=== PATIENT | female | born 1930 | race Caucasian/White ===

== ENCOUNTER 2018-04-13 08:17 | Outpatient (CLI) | payer MEDICARE, OTHER ==
[2018-04-13] MEDS ORDERED: ISOVUE-370 76%-LOCM 1 ML ONE (10:03)
--- NOTE | 2018-04-13 12:03 | CT ---
CT OF THE CHEST AND ABDOMEN AND PELVIS WITH IV CONTRAST: Date: 04/13/18 INDICATION: History of neoplasm of the myometrium. COMPARISON: None. FINDINGS: CHEST: No suspicious pulmonary nodule is evident. There is subsegmental atelectasis involving both lower lob es. No pathologically enlarged lymph node is evident. There are coronary artery thoracic aortic calcifications. ABDOMEN: No focal hepatic lesion is evident. There is a 4.8 cm cyst involving the superior pole of the left kidney. Right kidney is normal appeari ng. Spleen is normal appearing. Adrenal glands are unremarkable. No free fluid or enlarged lymph nodes are evident. There are layered gallstones within the gallbladder. PELVIS: There is a mild amount of retained stool within the colon. There is scattered colonic diverticula. Th ere is ill-defined hypodensity involving the lower uterine segment and region of the cervix, nonspeci fic. The visualized adnexa appear within normal limits. No pathologically enlarged lymph nodes are evident . OSSEOUS STRUCTURES: There is mild thoracolumbar scoliosis. There is scattered degenerative osteoarthritic change. No susp icious osteolytic or osteoblastic lesion is identified. There is diffuse osteopenia. IMPRESSION: 1. No evidence of regional or metastatic disease demonstrated within the chest, abdomen, or pelvis. 2. Ill-defined hypodensity seen within the lower uterine segment and region of the cervix, may corre spond to the patient's reported myometrial mass or possibly a cervical malignancy. Recommend correlat ion with patient's surgical history and clinical exam. 3. Cholelithiasis. 4. Left renal cyst. 5. Colonic diverticulosis. 6. Mild thoracolumbar scoliosis. POS: [facility]
== END 2018-04-13 08:18 | disposition home or self-care (01) ==
LOC: BICCT 08:17
PROVIDERS: ATTEND Obstetrics & Gynecology Gynecologic Oncology
DX: C54.2 Malignant neoplasm of myometrium (principal); K80.20 Calculus of gallbladder without cholecystitis without obstruction; N28.1 Cyst of kidney, acquired; K57.30 Diverticulosis of large intestine without perforation or abscess without bleeding; M41.9 Scoliosis, unspecified; N88.8 Other specified noninflammatory disorders of cervix uteri
CPT/HCPCS: 71260; 74177; 82565

== ENCOUNTER 2019-04-01 13:33 | Emergency (ER) | payer MEDICARE, OTHER ==
--- NOTE | 2019-04-01 14:28 | ULT ---
US Venous Doppler Rt Unilat History: Bruising and swelling. Comparison: None. Findings: Real-time grayscale, color, and spectral analysis of the right lower extremity venous syste m was performed. The common femoral, femoral, proximal portions greater saphenous and deep femoral veins as well as the popliteal posterior tibial veins were interrogated. Normal flow, augmentation, and compression. Impression: No deep venous thrombosis.
== END 2019-04-01 15:32 ==
LOC: ERS 13:33
DX: S80.11XA Contusion of right lower leg, initial encounter (principal); G30.9 Alzheimer's disease, unspecified; X58.XXXA Exposure to other specified factors, initial encounter

== ENCOUNTER 2019-04-04 14:51 | Outpatient (CLI) | payer MEDICARE, OTHER ==
--- NOTE | 2019-04-04 15:40 | ULT ---
BILATERAL LOWER EXTREMITY VENOUS DOPPLER ULTRASOUND: HISTORY: Bilateral lower extremity edema. TECHNIQUE: Jeffers scale ultrasound with color flow and spectral Doppler imaging of the deep venous systems of the lower extremities performed bilaterally. FINDINGS: There is good flow, compression, and augmentation noted in the common femoral, femoral, deep femoral, popliteal, posterior tibial, and greater saphenous veins. There is a complex fluid collection in the soft tissues of the right lateral knee region measuring 9. 3 x 5.2 cm without internal flow. This likely represents a hematoma. IMPRESSION: No evidence of deep vein thrombosis in either lower extremity. POS: [facility]
== END 2019-04-04 14:52 | disposition home or self-care (01) ==
LOC: BICULT 14:51
PROVIDERS: ATTEND Nurse Practitioner Family
DX: R60.0 Localized edema (principal)
CPT/HCPCS: 93970

== ENCOUNTER 2020-03-03 19:10 | Emergency (ER) | payer MEDICARE, OTHER ==
--- NOTE | 2020-03-03 19:46 | RAD ---
AP pelvis one view HISTORY: Fall. FINDINGS: Sacral alae and pelvic rings are intact. Mild degenerative changes of the hips, sacroiliac joints, and pubic symphysis. No acute fracture or dislocation are apparent. IMPRESSION : No acute osseous abnormalities are demonstrated.
--- NOTE | 2020-03-03 20:11 | CT ---
CT head noncontrast HISTORY: Injury. COMPARISON: 12/02/2016. FINDINGS: There is no evidence of acute intracranial hemorrhage or infarct. Diffuse cortical atrophy and chronic ischemic small vessel disease are similar in appearance to the prior exam. There is no mass effect or shift of midline structures. Dense small osteoma projecting from the right temporal inner calvarium is stable. IMPRESSION : No acute abnormalities are demonstrated.
--- NOTE | 2020-03-03 20:17 | CT ---
CT cervical spine noncontrast HISTORY: Injury. FINDINGS: There is gentle reversal of the normal lordotic curvature. Vertebral body heights are maint ained. Disc space narrowing at each level. Minimal degenerative spondylolisthesis at the C4-5 level. No acute fracture or dislocation. Bulky osteophytosis throughout the vertebral bodies and facets. IMPRESSION : Prominent osseous degenerative changes. No acute osseous abnormalities are demonstrated.
[2020-03-03] MEDS ORDERED: Lidocaine 1% w/Epinephrine 1:100K 20 ML VIAL ONE (20:24)
[2020-03-03] MEDS ORDERED: Bacitracin 1 PK ONE (20:58)
== END 2020-03-03 21:20 | disposition home or self-care (01) ==
LOC: ERS 19:10
DX: S01.81XA Laceration without foreign body of other part of head, initial encounter (principal); G30.9 Alzheimer's disease, unspecified; F02.80 Dementia in other diseases classified elsewhere, unspecified severity, without behavioral disturbance, psychotic disturbance, mood disturbance, and anxiety; Z79.84 Long term (current) use of oral hypoglycemic drugs; Z79.899 Other long term (current) drug therapy; Z79.82 Long term (current) use of aspirin; W22.8XXA Striking against or struck by other objects, initial encounter
CPT/HCPCS: 12013; 70450; 72125; 72170

== ENCOUNTER 2020-03-21 02:53 | Inpatient (IN) | payer MEDICARE, OTHER ==
[2020-03-21] MEDS ORDERED: Furosemide 40 MG/4 ML VIAL ONE ×2 (03:00→03:02)
[2020-03-21] MEDS ORDERED: Diltiazem 125 MG/25 ML ONE (03:15)
[2020-03-21 03:21] LABS: Hemoglobin 13.6 g/dL (12.0-16.0); Mean Corpuscular Volume 99.9 fL (78.0-98.0); Mean Platelet Volume 7.7 fL (7.4-10.4); Platelet Count 283 thou/uL (130-400); RBC Distribution Width 13.4 % (11.5-14.5); Red Blood Cell (RBC) Count 4.12 mill/uL (4.20-5.40); White Blood Cell (WBC) Count 19.4 thou/uL (4.8-10.8)
[2020-03-21 03:39] LABS: Band 5 % (5-11); Lymphocytes 1 % (21-51); MDiff Complete? YES; Monocytes 12 % (0-10); Neutrophil 82 % (42-75); Platelet Morphology Comment Appears Adequate; RBC Morphology Normal
[2020-03-21 03:45] LABS: ALT (SGPT) 27 U/L (8-55); AST (SGOT) 28 U/L (5-34); Albumin 3.1 g/dL (3.4-4.8); Alkaline Phosphatase 94 U/L (40-110); Anion Gap 19 mmol/L (10-20); BUN (Urea Nitrogen) 50 mg/dL (9.8-20.1); Bilirubin, Total 2.6 mg/dL (0.2-1.2); Calc. Creatinine Clearance 0 mL/min (70-130); Calcium 8.8 mg/dL (7.8-10.44); Carbon Dioxide 23 mmol/L (23-31); Chloride 99 mmol/L (98-107); Globulin 3.1 g/dL (2.4-3.5); Glucose 114 mg/dL (83-110); Protein, Total 6.2 g/dL (6.0-8.3); Sodium 137 mmol/L (136-145)
[2020-03-21] MEDS ORDERED: Amiodarone 450 MG, Admixture Fee 1 EACH in Dextrose 5% in Water 250 ML IVPB SCH (03:45)
[2020-03-21] MEDS ORDERED: Cefepime 2 GM VIAL ONE (03:57)
[2020-03-21] MEDS ORDERED: Vancomycin 1 GM/200 ML BAG ONE (03:58)
[2020-03-21] MEDS ORDERED: Acetaminophen 325 MG TAB PO PRN (04:55)
[2020-03-21] MEDS ORDERED: Ondansetron ODT 4 MG TAB PO PRN (04:55)
[2020-03-21] MEDS ORDERED: Ondansetron PF 4 MG/2 ML Vial IVP PRN (04:55)
[2020-03-21] MEDS ORDERED: Acetaminophen 650 MG Suppository PR PRN (04:55)
[2020-03-21] MEDS ORDERED: Guaifenesin DM 100-10/5 ML UDCUP PO PRN (04:55)
[2020-03-21] MEDS ORDERED: Calcium Carbonate 500 MG ChewTAB PO PRN (04:55)
--- NOTE | 2020-03-21 05:07 | PDOC.HHP ---
Hospitalist HPI - History of Present Illness respiratory distress History of Present Illness: Case of an 89y/o female with a pmhx of alzheimer dementia, htn, hld and DM who was brought to hospital due to respiratory distress. apparently patient was on her usual state of health until today when she was brought to hospital due to respiratory distress. patient has an unclear history of covid 19, apparently she was recently diagnsed on 03/03/2020 and had a negative test afterwards but this was unable to be confirmed. at ED patient was evaluated and found to be on resp failure requiring bipap new onset of afib on rvr and findings concerning for sepsis secondary to pneumonia for which hospitalist was consulted for further evaluation and management. Hospitalist ROS - Review of Systems ROS unobtainable: due to mental status Hospitalist History - Past Surgical History Other Surgical History: unable to asses due to mental status - Family History Other Family History: unable to asses due to mental status - Social History Other Social History: unable to asses due to mental status - Exam General Appearance: ill appearing Eye: PERRL, anicteric sclera ENT: normocephalic atraumatic, no oropharyngeal lesions Neck: supple, symmetric, no JVD Heart: irregular Heart - other findings: tachycardic Respiratory: rhonchi, tachypneic Gastrointestinal: soft, non-tender, non-distended Extremities: no cyanosis, no clubbing, no edema Skin: normal turgor, no lesions Neurological: cranial nerve grossly intact Musculoskeletal: normal tone Psychiatric: normal affect, normal behavior Hospitalist Results - Labs Result Diagrams: 03/21/20 03:03 03/21/20 03:03 Lab results: WBC 19.4 thou/uL (4.8-10.8) H 03/21/20 03:03 Hgb 13.6 g/dL (12.0-16.0) 03/21/20 03:03 Hct 41.2 % (36.0-47.0) 03/21/20 03:03 MCV 99.9 fL (78.0-98.0) H 03/21/20 03:03 Plt Count 283 thou/uL (130-400) 03/21/20 03:03 Band Neuts % (Manual) 5 % (5-11) 03/21/20 03:03 Sodium 137 mmol/L (136-145) 03/21/20 03:03 Potassium 4.0 mmol/L (3.5-5.1) 03/21/20 03:03 Chloride 99 mmol/L (98-107) 03/21/20 03:03 Carbon Dioxide 23 mmol/L (23-31) 03/21/20 03:03 BUN 50 mg/dL (9.8-20.1) H 03/21/20 03:03 Creatinine 1.18 mg/dL (0.6-1.1) H 03/21/20 03:03 Glucose 114 mg/dL (83-110) H 03/21/20 03:03 Lactic Acid 2.5 mmol/L (0.5-2.2) H 03/21/20 03:03 Calcium 8.8 mg/dL (7.8-10.44) 03/21/20 03:03 Total Bilirubin 2.6 mg/dL (0.2-1.2) H 03/21/20 03:03 AST 28 U/L (5-34) 03/21/20 03:03 ALT 27 U/L (8-55) 03/21/20 03:03 Alkaline Phosphatase 94 U/L (40-110) 03/21/20 03:03 Troponin I 0.016 ng/mL (< 0.028) 03/21/20 03:03 B-Natriuretic Peptide 245.7 pg/mL (0-100) H 03/21/20 03:03 Serum Total Protein 6.2 g/dL (6.0-8.3) 03/21/20 03:03 Albumin 3.1 g/dL (3.4-4.8) L 03/21/20 03:03 Hospitalist H&P A/P - Problem (1) Respiratory failure with hypoxia Code(s): J96.91 - RESPIRATORY FAILURE, UNSPECIFIED WITH HYPOXIA Status: Acute (2) Sepsis Code(s): A41.9 - SEPSIS, UNSPECIFIED ORGANISM Status: Acute (3) Pneumonia Code(s): J18.9 - PNEUMONIA, UNSPECIFIED ORGANISM Status: Acute (4) COVID-19 Code(s): U07.1 - COVID-19 Status: Acute (5) Atrial fibrillation with RVR Code(s): I48.91 - UNSPECIFIED ATRIAL FIBRILLATION Status: Acute - Plan Plan: 89 with the stated pmhx who present w resp failure sepsis secondary to pneumonia / covid and afib in rvr resp failure - likely secondary to infectious process - on bipap - pulmonology consulted - dnr sepsis secondary to pneumonia - elevatated WBC + elevated LA with CXR concerning for RLL consolidation, seen by me, pending official report - will start cef + vanc - ivfs - f/u LA - f/u cultures covid 19 - unclear hx, apparently recently positive f/u negative, could not confirm w long-term - will start isolation precautions - decadron ivd - f/u inflammation markers afib in rvr - started on full AC w lovenox - 2echo - on amiodarone drip - cardio evaluation
[2020-03-21] MEDS: Sodium Chloride 0.9% 1,000 ML IV SCH ×2 (06:32→21:05)
[2020-03-21] MEDS ORDERED: FLU VACC QS2020-21(65YR UP)/PF 240 MCG/0.7 ML SYRINGE IM ONE (07:00)
--- NOTE | 2020-03-21 08:02 | RAD ---
Frontal radiograph chest: 03/21/2020 COMPARISON: None available HISTORY: Respiratory distress FINDINGS: Postoperative clips are seen overlying the lateral aspect of the left chest wall. There is a nonspecific focal area of parenchymal opacity in the lateral aspect of the right lung base approaching the right costophrenic angle measuring 4.2 cm in craniocaudal dimension. There is no pneu mothorax or large volume pleural effusion. IMPRESSION: Nonspecific focal opacity in the lateral right lung base. This may be related to infectio us pneumonitis/aspiration or an underlying pulmonary parenchymal mass lesion. Recommend short-term follow-up imaging following treatment to document resolution. If this opacity persists, follow-up [facility] [address] [place] is advised. DENISE T
[2020-03-21 08:32] LABS: Lactic Acid 2.1 mmol/L (0.5-2.2)
[2020-03-21 08:37] LABS: Troponin I 0.025 ng/mL (< 0.028)
[2020-03-21] MEDS ORDERED: Cefepime 2 GM in Sodium Chloride 0.9% 100 ML IVPB SCH (10:00)
[2020-03-21] MEDS: Dexamethasone 4 mg/ml Vial SLOW IVP SCH (10:44)
[2020-03-21] MEDS: Enoxaparin Sodium 80 MG/0.8 ML SYRINGE SC SCH ×2 (10:44→21:04)
--- NOTE | 2020-03-21 15:11 | PDOC.HOSPP ---
- Subjective Encounter Date: 03/21/20 Encounter Time: 07:00 Subjective: Patient seen for follow-up regarding acute hypoxic respiratory failure. Patient is currently on BiPAP, not speaking, could not complete review of systems. - Objective Vital Signs & Weight: Vital Signs (12 hours) Temp Pulse Pulse Ox 03/21/20 09:47 100 03/21/20 09:46 115 H 03/21/20 08:00 97.0 F L 96 03/21/20 06:20 96.5 F L Weight Weight 166 lb Most Recent Monitor Data Heart Rate from ECG 121 NIBP 96/57 NIBP BP-Mean 70 Respiration from ECG 25 SpO2 93 Result Diagrams: 03/21/20 03:03 03/21/20 03:03 Additional Labs: Accuchecks 03/21/20 06:37 POC Glucose 154 H I reviewed patient's labs and MAR EKG Reviewed by me: Yes (Atrial fibrillation on telemetry) Hospitalist ROS - Review of Systems ROS unobtainable: due to mental status - Medication Medications: Active Medications Generic Name Dose Route Start Last Admin Trade Name Adrian PRN Reason Stop Dose Admin Dexamethasone 6 mg 03/21/20 09:00 03/21/20 10:44 Dexamethasone 4 Mg/Ml Vial SLOW IVP 6 mg DAILY RAGHU Administration Enoxaparin Sodium 80 mg 03/21/20 09:00 03/21/20 10:44 Enoxaparin Sodium 80 Mg/0.8 Ml Syringe SC 80 mg 0900,2100 RAGHU Administration Sodium Chloride 1,000 mls @ 70 mls/hr 03/21/20 05:00 03/21/20 06:32 Normal Saline 0.9% IV 1,000 mls .[id number] RAGHU Administration - Exam General Appearance: ill appearing Eye: anicteric sclera ENT: normocephalic atraumatic Neck: supple Heart: no rubs, irregular Respiratory: rhonchi Gastrointestinal: soft, non-tender Skin: no rashes Psychiatric - other findings: Unable to assess Hosp A/P - Plan - Problem (1) Respiratory failure with hypoxia Code(s): J96.91 - RESPIRATORY FAILURE, UNSPECIFIED WITH HYPOXIA Status: Acute (2) Atrial fibrillation with RVR Code(s): I48.91 - UNSPECIFIED ATRIAL FIBRILLATION Status: Acute (3) COVID-19 Code(s): U07.1 - COVID-19 Status: Acute (4) Sepsis Code(s): A41.9 - SEPSIS, UNSPECIFIED ORGANISM Status: Acute (5) Pneumonia Code(s): J18.9 - PNEUMONIA, UNSPECIFIED ORGANISM Status: Acute - Plan Plan: Continue IV ceftriaxone and azithromycin. Continue dexamethasone. Patient reportedly tested positive for COVID-19 on February 28, 2020. She is not a candidate for remdesivir. Continue amiodarone drip. Patient is currently in atrial fibrillation, rate controlled. Continue anticoagulation. PCCM/cardiology service was consulted.
[2020-03-21] MEDS: Amiodarone 450 MG in Dextrose 5% in Water 250 ML IVPB SCH (15:55)
[2020-03-21] MEDS: Cefepime 2 GM in Sodium Chloride 0.9% 100 ML IVPB SCH (15:55)
[2020-03-21 16:09] LABS: Troponin I 0.016 ng/mL (< 0.028)
[2020-03-21] MEDS: Digoxin 0.5 MG/2 ML AMP SLOW IVP SCH ×3 (18:49→23:48)
--- NOTE | 2020-03-21 20:20 | CON ---
DATE OF CONSULTATION: 03/21/2020 INDICATION FOR CONSULTATION: 89-year-old female with atrial fibrillation, and rapid ventricular response. HISTORY OF PRESENT ILLNESS: This very unfortunate 89-year-old female, who has Alzheimer's dementia, resides in a assisted. She has become increasingly short of breath and was admitted due to respiratory distress. She has risk factors for coronary artery disease, which include hypertension, dyslipidemia, and diabetes. She apparently became so distressed, she is now on a BiPAP mask in order to maintain oxygen levels. She is very demented and is very difficult to get any information from the patient. She was noted to be in atrial fibrillation with rapid ventricular response. She was placed on IV diltiazem apparently in the emergency room and did have hypotension. At this time, she is on IV amiodarone when I am seeing her in the IMCU, very little information can be obtained from the patient. She is nonverbal at least to me. I did notice also that her BNP was 247, which is not indicative of significant congestive heart failure. Her troponin-I is negative. Her chest x- ray did show what appears to be a right lung base infiltrate more on the lateral side. Her EKG shows atrial fibrillation with rapid ventricular response. She recently was diagnosed with COVID couple weeks ago, is unclear whether or not she infected. Review of systems as well as past medical history, family history, social history, unable to gather this information as the patient is nonverbal and she is on a BiPAP mask. MEDICATIONS: At this time include; 1. IV amiodarone. 2. Maxipime. 3. She is also on vancomycin. 4. Dexamethasone. 5. Lovenox. 6. Tylenol. 7. Other p.r.n. medications. PHYSICAL EXAMINATION: GENERAL: Reveals an elderly female who is in no acute distress at this time. She is somewhat if not just lethargic. She is incoherent, does not communicate. VITAL SIGNS: Her blood pressure is 116/82, heart rate is in the 1 teens to 120s with atrial fibrillation, respiratory rate is about 25, O2 saturation is 97%. HEENT: Unremarkable, cannot auscultate the carotids due to high flow from the CPAP mask. CHEST: Appears to be clear. She does not take a good inspiratory effort or deep breath for auscultation. I do not hear any rales or wheezing. CARDIOVASCULAR: Reveals an irregularly irregular rhythm. Tachycardic. There were no gross murmurs noted. ABDOMEN: Soft and nontender. I cannot elicit any pain nor can I palpate any masses. EXTREMITIES: Did show mild lower extremity edema or ankle edema mainly. I cannot palpate pedal pulses. Popliteal pulses were present. NEUROLOGIC: She is nonverbal. LABORATORY DATA: Shows a WBC of 19.4, hemoglobin 13.6, platelet count 283,000. Sodium was 137, potassium 4.0, BUN was 50 with a creatinine of 1.18, blood sugar anywhere between 114 to 154. Troponin-I is negative. BNP was 247. EKG shows atrial fibrillation with rapid ventricular response. IMPRESSION: 1. Elderly female with recent diagnosis of coronavirus disease pneumonia who is having respiratory distress. She is maintaining on BiPAP mask at this time. We will continue this medication. She is on antibiotics and steroids also to help her with this acute event. Also, she has atrial fibrillation with rapid ventricular response. I know that she is somewhat dehydrated, we need to give her some volume. We are still waiting on echocardiogram to determine whether or not she has a normal ejection fraction. Her BNP was 247, not indicative of congestive heart failure, probably minimal. She might have some diastolic dysfunction, which would also cause elevation of the BNP. 2. Atrial fibrillation. I will start her on IV digoxin, at least give a loading dose to see if this will control the heart rate somewhat, but most likely once the underlying illness has improved, then the heart rate most likely will improve, also will decrease. She is on IV amiodarone, we could switch this over to p.o. in the next 24 hours, but based on the results of the echocardiogram to determine whether or not she may be a candidate for a cardioversion of her atrial fibrillation. I do not know whether this is chronic or not, but this time we will continue the IV amiodarone, but also continue with some type of anticoagulation, and most likely she is on Lovenox. We will continue Lovenox at this time unless she has any bleeding issues. 3. History of Alzheimer's. This will be dealt by the primary service. 4. Most likely underlying sepsis and once this improves, hopefully her cardiac status will also improve. We will be more than happy to continue to follow the patient with you. We will order digoxin for the patient to see if we can control the heart rate somewhat better. If not, we may also start p.o. beta-blockers since her blood pressure seems to be more stable now. Job ID: [id number] MTDD
[2020-03-22 02:07] LABS: SARS-CoV-2 MS2 Positive; SARS-CoV-2 N Gene Positive; SARS-CoV-2 S Gene Positive; SARS-CoV-2 by NAA DETECTED (NotDetected); SARS-CoV-2 orf1ab Positive
[2020-03-22] MEDS: Cefepime 2 GM in Sodium Chloride 0.9% 100 ML IVPB SCH ×2 (03:25→17:36)
[2020-03-22] MEDS: Amiodarone 450 MG in Dextrose 5% in Water 250 ML IVPB SCH ×2 (03:53→20:37)
[2020-03-22] MEDS: Vancomycin 1 GM in Premix Bag 1 BAG IVPB SCH (04:13)
[2020-03-22] MEDS: Digoxin 0.5 MG/2 ML AMP SLOW IVP SCH (05:26)
[2020-03-22] MEDS ORDERED: Metoprolol Tartrate 5 MG/5 ML VIAL IVP SCH (06:30)
[2020-03-22 09:18] LABS: ALT (SGPT) 16 U/L (8-55); AST (SGOT) 14 U/L (5-34); Albumin 2.2 g/dL (3.4-4.8); Alkaline Phosphatase 75 U/L (40-110); Anion Gap 12 mmol/L (10-20); BUN (Urea Nitrogen) 38 mg/dL (9.8-20.1); Bilirubin, Total 1.7 mg/dL (0.2-1.2); Calc. Creatinine Clearance 76 mL/min (70-130); Calcium 6.9 mg/dL (7.8-10.44); Carbon Dioxide 19 mmol/L (23-31); Chloride 112 mmol/L (98-107); Globulin 2.4 g/dL (2.4-3.5); Glucose 86 mg/dL (83-110); Potassium 3.2 mmol/L (3.5-5.1); Protein, Total 4.6 g/dL (6.0-8.3); Sodium 140 mmol/L (136-145)
[2020-03-22 09:24] LABS: Band 12 % (5-11); Hemoglobin 12.5 g/dL (12.0-16.0); Lymphocytes 3 % (21-51); MDiff Complete? YES; Mean Corpuscular HGB CONC 32.5 g/dL (32.0-36.0); Mean Corpuscular Hemoglobin 32.9 pg (27.0-31.0); Mean Platelet Volume 7.6 fL (7.4-10.4); Monocytes 1 % (0-10); Neutrophil 84 % (42-75); Platelet Count 271 thou/uL (130-400); RBC Distribution Width 13.2 % (11.5-14.5); Red Blood Cell (RBC) Count 3.79 mill/uL (4.20-5.40); White Blood Cell (WBC) Count 16.8 thou/uL (4.8-10.8)
[2020-03-22] MEDS: Dexamethasone 4 mg/ml Vial SLOW IVP SCH (10:44)
[2020-03-22] MEDS: Digoxin 0.125 MG TAB PO SCH (10:45)
[2020-03-22] MEDS: Enoxaparin Sodium 80 MG/0.8 ML SYRINGE SC SCH ×2 (10:51→20:37)
[2020-03-22] MEDS: Diltiazem HCl SR 60 mg Capsule PO SCH ×2 (10:51→20:35)
[2020-03-22] MEDS: Sodium Chloride 0.9% 1,000 ML IV SCH (10:53)
--- NOTE | 2020-03-22 16:33 | PDOC.HOSPP ---
- Subjective Encounter Date: 03/22/20 Encounter Time: 15:30 Subjective: Patient seen for follow-up regarding acute hypoxic respiratory failure. He is not answering questions, could not complete review of systems. - Objective Vital Signs & Weight: Vital Signs (12 hours) Pulse Pulse Ox 03/22/20 10:45 125 H 03/22/20 08:00 96 03/22/20 05:26 125 H Weight Admit Weight 166 lb Weight 166 lb Most Recent Monitor Data Heart Rate from ECG 80 NIBP 125/78 NIBP BP-Mean 93 Respiration from ECG 28 SpO2 95 I&O: 03/21/20 03/22/20 03/23/20 06:59 06:59 06:59 Intake Total 2148 Output Total 300 Balance 1848 Result Diagrams: 03/22/20 08:41 03/22/20 08:41 Additional Labs: I reviewed patient's labs and MAR EKG Reviewed by me: Yes (Cristofer junior with RVR on personnel monitor) Hospitalist ROS - Review of Systems ROS unobtainable: due to mental status - Medication Medications: Active Medications Generic Name Dose Route Start Last Admin Trade Name Freq PRN Reason Stop Dose Admin Dexamethasone 6 mg 03/21/20 09:00 03/22/20 10:44 Dexamethasone 4 Mg/Ml Vial SLOW IVP 6 mg DAILY RAGHU Administration Digoxin 0.125 mg 03/22/20 09:00 03/22/20 10:45 Digoxin 0.125 Mg Tab PO 0.125 mg QAM RAGHU Administration Diltiazem HCl 60 mg 03/22/20 09:00 03/22/20 10:51 Diltiazem Hcl Sr 60 Mg Capsule PO 60 mg BID RAGHU Administration Enoxaparin Sodium 80 mg 03/21/20 09:00 03/22/20 10:51 Enoxaparin Sodium 80 Mg/0.8 Ml Syringe SC 80 mg 0900,2100 RAGHU Administration Sodium Chloride 1,000 mls @ 70 mls/hr 03/21/20 05:00 03/22/20 10:53 Normal Saline 0.9% IV 1,000 mls .[id number] RAGHU Administration Amiodarone HCl 450 mg/ 259 mls @ 0 mls/hr 03/21/20 05:15 03/22/20 03:53 Dextrose/Water IVPB 259 mls INF RAGHU Administration Protocol Per Protocol Vancomycin HCl 1 gm/ Device 200 mls @ 200 mls/hr 03/22/20 04:00 03/22/20 04:13 IVPB 200 mls 0400 RAGHU Administration Sodium Chloride 10 ml 03/22/20 09:00 03/22/20 10:52 Flush - Normal Saline 10 Ml Syringe IVF 10 ml Q12HR RAGHU Administration - Exam Eye: anicteric sclera ENT: normocephalic atraumatic Neck: supple Heart: no rubs, irregular Respiratory - other findings: Bibasal crackles Gastrointestinal: soft, non-tender Skin: no rashes Psychiatric: lethargic Hosp A/P - Plan - Problem (1) Respiratory failure with hypoxia Code(s): J96.91 - RESPIRATORY FAILURE, UNSPECIFIED WITH HYPOXIA Status: Acute (2) Atrial fibrillation with RVR Code(s): I48.91 - UNSPECIFIED ATRIAL FIBRILLATION Status: Acute (3) COVID-19 Code(s): U07.1 - COVID-19 Status: Acute (4) Sepsis Code(s): A41.9 - SEPSIS, UNSPECIFIED ORGANISM Status: Acute (5) Pneumonia Code(s): J18.9 - PNEUMONIA, UNSPECIFIED ORGANISM Status: Acute - Plan Continue IV antibiotics-ceftriaxone and azithromycin. Continue IV dexamethasone. Patient is not a candidate for remdesivir. Patient is currently in atrial fibrillation, rate controlled. Continue anticoagulation. PCCM/cardiology services following.
[2020-03-23] MEDS: Sodium Chloride 0.9% 1,000 ML IV SCH ×2 (04:56→16:22)
[2020-03-23] MEDS: Vancomycin 1 GM in Premix Bag 1 BAG IVPB SCH (04:57)
[2020-03-23 05:01] LABS: Vancomycin, Trough 6.6 ug/mL
[2020-03-23] MEDS: Dexamethasone 4 mg/ml Vial SLOW IVP SCH (09:54)
[2020-03-23] MEDS: Digoxin 0.125 MG TAB PO SCH (09:55)
[2020-03-23] MEDS: Diltiazem HCl SR 60 mg Capsule PO SCH ×2 (09:55→21:37)
[2020-03-23] MEDS: Enoxaparin Sodium 80 MG/0.8 ML SYRINGE SC SCH ×2 (09:56→21:35)
--- NOTE | 2020-03-23 11:02 | PRG ---
DATE OF SERVICE: 03/23/2020 SUBJECTIVE: Ms. Polanco looks comfortable. OBJECTIVE: VITAL SIGNS: Her blood pressure is 140/80, pulse is currently in the 80s to regular. The patient is on intravenous amiodarone, Cardizem, and digoxin. At this time, we will stop the digoxin and monitor closely the heart rhythm. Job ID: [id number]
--- NOTE | 2020-03-23 11:50 | EKG ---
Test Reason : Blood Pressure : / mmHG Vent. Rate : 168 BPM Atrial Rate : 192 BPM P-R Int : 000 ms QRS Dur : 078 ms QT Int : 282 ms P-R-T Axes : 000 -01 157 degrees QTc Int : 471 ms Atrial fibrillation with rapid ventricular response Nonspecific ST and T wave abnormality , probably digitalis effect Abnormal ECG Confirmed by GISELLA FRANK M.D. ([id number]), technical writer and editor GUSTAVO PRINGLE ([id number]) on 03/23/2020 11:50:31 AM Referred By: MONIKA Confirmed By:GIESLLA FRANK M.D.
[2020-03-23] MEDS: Amiodarone 450 MG in Dextrose 5% in Water 250 ML IVPB SCH (12:39)
--- NOTE | 2020-03-23 16:18 | PDOC.HOSPP ---
- Subjective Encounter Date: 03/23/20 Encounter Time: 10:00 Subjective: Patient seen for follow-up of hypoxic respiratory failure. Patient is nonverbal, could not complete review of systems. - Objective Vital Signs & Weight: Vital Signs (12 hours) Pulse Pulse Ox 03/23/20 09:55 125 H 03/23/20 07:50 95 Weight Admit Weight 166 lb Weight 166 lb 6 oz Most Recent Monitor Data Heart Rate from ECG 84 NIBP 149/71 NIBP BP-Mean 97 Respiration from ECG 25 SpO2 95 I&O: 03/22/20 03/23/20 03/24/20 06:59 06:59 06:59 Intake Total 2148 2151 Output Total 300 800 Balance 1848 1351 Result Diagrams: 03/22/20 08:41 03/22/20 08:41 Additional Labs: Labs and MAR reviewed by me EKG Reviewed by me: Yes (Cristofer junior on telemetry) Hospitalist ROS - Review of Systems ROS unobtainable: due to mental status - Medication Medications: Active Medications Generic Name Dose Route Start Last Admin Trade Name Shirazq PRN Reason Stop Dose Admin Dexamethasone 6 mg 03/21/20 09:00 03/23/20 09:54 Dexamethasone 4 Mg/Ml Vial SLOW IVP 6 mg DAILY RAGHU Administration Diltiazem HCl 60 mg 03/22/20 09:00 03/23/20 09:55 Diltiazem Hcl Sr 60 Mg Capsule PO Not Given BID RAGHU Enoxaparin Sodium 80 mg 03/21/20 09:00 03/23/20 09:56 Enoxaparin Sodium 80 Mg/0.8 Ml Syringe SC 80 mg 0900,2100 RAGHU Administration Sodium Chloride 1,000 mls @ 70 mls/hr 03/21/20 05:00 03/23/20 04:56 Normal Saline 0.9% IV 1,000 mls .[id number] RAGHU Administration Amiodarone HCl 450 mg/ 259 mls @ 0 mls/hr 03/21/20 05:15 03/23/20 12:39 Dextrose/Water IVPB 259 mls INF RAGHU Administration Protocol Per Protocol Cefepime HCl 2 gm/ Sodium 100 mls @ 200 mls/hr 03/22/20 16:00 03/22/20 17:36 Chloride IVPB 100 mls 1600 RAGHU Administration Sodium Chloride 10 ml 03/22/20 09:00 03/23/20 09:56 Flush - Normal Saline 10 Ml Syringe IVF 10 ml Q12HR RAGHU Administration - Exam General Appearance: awake alert Eye: anicteric sclera ENT: moist mucosa Neck: supple Heart: irregular Respiratory: CTAB Gastrointestinal: soft, non-tender Skin: no rashes Psychiatric - other findings: Unable to assess Hosp A/P - Plan - Problem (1) Respiratory failure with hypoxia Code(s): J96.91 - RESPIRATORY FAILURE, UNSPECIFIED WITH HYPOXIA Status: Acute (2) Atrial fibrillation with RVR Code(s): I48.91 - UNSPECIFIED ATRIAL FIBRILLATION Status: Acute (3) COVID-19 status: Acute (4) Pneumonia Code(s): J18.9 - PNEUMONIA, UNSPECIFIED ORGANISM Status: Acute (5) Sepsis Code(s): A41.9 - SEPSIS, UNSPECIFIED ORGANISM Status: Acute - Plan Continue ceftriaxone and azithromycin. Patient is on IV dexamethasone for COVID-19 pneumonia. Patient is not a candidate for remdesivir. Patient in A. fib, rate controlled, continue anticoagulation PCCM/cardiology services following.
[2020-03-23] MEDS: Cefepime 2 GM in Sodium Chloride 0.9% 100 ML IVPB SCH (16:21)
[2020-03-24] MEDS: Amiodarone 450 MG in Dextrose 5% in Water 250 ML IVPB SCH ×2 (01:57→18:22)
[2020-03-24] MEDS: Vancomycin 1.5 GRAM/300 ML BAG 1.5 GM in Premix Bag 1 BAG IVPB SCH (03:40)
[2020-03-24 04:55] LABS: Anion Gap 15 mmol/L (10-20); BUN (Urea Nitrogen) 36 mg/dL (9.8-20.1); Calc. Creatinine Clearance 70 mL/min (70-130); Calcium 8.7 mg/dL (7.8-10.44); Carbon Dioxide 19 mmol/L (23-31); Chloride 113 mmol/L (98-107); Glucose 116 mg/dL (83-110); Potassium 4.4 mmol/L (3.5-5.1); Sodium 143 mmol/L (136-145)
[2020-03-24 05:10] LABS: Band 4 % (5-11); Burr Cells MODERATE= 6-15 cells (100X) (0-1/hpf); Hemoglobin 11.8 g/dL (12.0-16.0); Lymphocytes 7 % (21-51); MDiff Complete? YES; Mean Corpuscular HGB CONC 31.3 g/dL (32.0-36.0); Mean Corpuscular Hemoglobin 31.7 pg (27.0-31.0); Mean Platelet Volume 7.5 fL (7.4-10.4); Monocytes 3 % (0-10); Neutrophil 86 % (42-75); Platelet Count 258 thou/uL (130-400); RBC Distribution Width 13.2 % (11.5-14.5); Red Blood Cell (RBC) Count 3.73 mill/uL (4.20-5.40); White Blood Cell (WBC) Count 14.6 thou/uL (4.8-10.8)
[2020-03-24] MEDS: Sodium Chloride 0.9% 1,000 ML IV SCH ×2 (05:28→15:14)
--- NOTE | 2020-03-24 09:45 | PRG ---
DATE OF SERVICE: 03/24/2020 SUBJECTIVE: Patient remains in COVID isolation protocol. Her blood pressure is 140 to 150 systolic, pulse is in the 80s with atrial fibrillation with controlled rate. OBJECTIVE: Physical examination not done per COVID protocol. The patient looks comfortable visually. LABORATORY DATA: Indicates her hemoglobin is 11.3. Her creatinine is 0.67. Ferritin level is actually high at 687, probably it is inflammatory. Potassium is 4.4. ASSESSMENT: Atrial fibrillation with controlled ventricular response. PLAN: 1. Digoxin was stopped yesterday. 2. Can stop diltiazem today. 3. Probably can change to oral amiodarone tomorrow. 4. Continue with enoxaparin. Job ID: [id number]
[2020-03-24] MEDS: Dexamethasone 4 mg/ml Vial SLOW IVP SCH (11:03)
[2020-03-24] MEDS: Enoxaparin Sodium 80 MG/0.8 ML SYRINGE SC SCH ×2 (11:03→20:20)
[2020-03-24] MEDS: Diltiazem HCl SR 60 mg Capsule PO SCH (11:58)
[2020-03-24] MEDS: Cefepime 2 GM in Sodium Chloride 0.9% 100 ML IVPB SCH (15:14)
--- NOTE | 2020-03-24 16:00 | PDOC.HOSPP ---
- Subjective Encounter Date: 03/24/20 Encounter Time: 15:00 Subjective: Patient seen for follow-up regarding hypoxic respiratory failure. Not answering questions, could not complete review of systems. - Objective Vital Signs & Weight: Vital Signs (12 hours) Temp Pulse Ox 03/24/20 12:34 94 L 03/24/20 08:00 95 03/24/20 04:12 97.8 F Weight Admit Weight 166 lb Weight 166 lb 6 oz Most Recent Monitor Data Heart Rate from ECG 117 NIBP 142/94 NIBP BP-Mean 110 Respiration from ECG 41 SpO2 90 I&O: 03/23/20 03/24/20 03/25/20 06:59 06:59 06:59 Intake Total 2151 1005 Output Total 800 475 Balance 1351 530 Result Diagrams: 03/24/20 03:57 03/24/20 03:57 Additional Labs: I reviewed patient's labs and MAR EKG Reviewed by me: Yes (Cristofer junior on telemetry) Hospitalist ROS - Review of Systems ROS unobtainable: due to mental status - Medication Medications: Active Medications Generic Name Dose Route Start Last Admin Trade Name Freq PRN Reason Stop Dose Admin Dexamethasone 6 mg 03/21/20 09:00 03/24/20 11:03 Dexamethasone 4 Mg/Ml Vial SLOW IVP 6 mg DAILY RAGHU Administration Enoxaparin Sodium 80 mg 03/21/20 09:00 03/24/20 11:03 Enoxaparin Sodium 80 Mg/0.8 Ml Syringe SC 80 mg 0900,2100 RAGHU Administration Sodium Chloride 1,000 mls @ 70 mls/hr 03/21/20 05:00 03/24/20 15:14 Normal Saline 0.9% IV 1,000 mls .[id number] RAGHU Administration Amiodarone HCl 450 mg/ 259 mls @ 0 mls/hr 03/21/20 05:15 03/24/20 01:57 Dextrose/Water IVPB 259 mls INF RAGHU Administration Protocol Per Protocol Cefepime HCl 2 gm/ Sodium 100 mls @ 200 mls/hr 03/22/20 16:00 03/24/20 15:14 Chloride IVPB 100 mls 1600 RAGUH Administration Vancomycin HCl 1.5 gm/ Device 300 mls @ 200 mls/hr 03/24/20 04:00 03/24/20 03:40 IVPB 300 mls 0400 RAGHU Administration Sodium Chloride 10 ml 03/22/20 09:00 03/24/20 11:03 Flush - Normal Saline 10 Ml Syringe IVF 10 ml Q12HR RAGHU Administration - Exam General Appearance: ill appearing ENT: normocephalic atraumatic Heart: irregular Respiratory: CTAB Gastrointestinal: soft, non-tender Skin: no rashes Psychiatric - other findings: Could not assess Hosp A/P - Plan - Problem (1) Respiratory failure with hypoxia Code(s): J96.91 - RESPIRATORY FAILURE, UNSPECIFIED WITH HYPOXIA Status: Acute (2) Atrial fibrillation with RVR Code(s): I48.91 - UNSPECIFIED ATRIAL FIBRILLATION Status: Acute (3) COVID-19 status: Acute (4) Pneumonia Code(s): J18.9 - PNEUMONIA, UNSPECIFIED ORGANISM Status: Acute (5) Sepsis Code(s): A41.9 - SEPSIS, UNSPECIFIED ORGANISM Status: Acute - Plan Continue vancomycin and cefepime Continue IV dexamethasone for COVID-19 pneumonia. Patient is not a candidate for remdesivir. Patient in A. fib, rate controlled, continue amiodarone. PCCM/cardiology services following.
[2020-03-25 03:52] LABS: Hemoglobin 12.4 g/dL (12.0-16.0); Platelet Count 255 thou/uL (130-400)
[2020-03-25] MEDS: Vancomycin 1.5 GRAM/300 ML BAG 1.5 GM in Premix Bag 1 BAG IVPB SCH (04:59)
[2020-03-25] MEDS: Dexamethasone 4 mg/ml Vial SLOW IVP SCH (08:02)
[2020-03-25] MEDS: Enoxaparin Sodium 80 MG/0.8 ML SYRINGE SC SCH ×2 (08:03→20:56)
[2020-03-25] MEDS: Amiodarone 200 MG TAB PO SCH ×2 (09:17→19:39)
[2020-03-25] MEDS: Diltiazem HCl SR 60 mg Capsule PO SCH ×2 (09:17→19:40)
--- NOTE | 2020-03-25 09:46 | PDOC.HOSPP ---
- Subjective Encounter Date: 03/25/20 Encounter Time: 11:00 non-verbal Subjective: Patient remains on BIPAP, not really responding much to stimulation. - Objective Vital Signs & Weight: Vital Signs (12 hours) Temp Pulse Ox 03/25/20 08:00 96 03/25/20 03:39 97.8 F 03/25/20 03:17 97 03/25/20 00:28 97.5 F L Weight Admit Weight 166 lb Weight 166 lb 6 oz Most Recent Monitor Data Heart Rate from ECG 130 NIBP 162/87 NIBP BP-Mean 112 Respiration from ECG 45 SpO2 97 I&O: 03/24/20 03/25/20 03/26/20 06:59 06:59 06:59 Intake Total 1005 1805 Output Total 475 900 Balance 530 905 Result Diagrams: 03/25/20 03:15 03/24/20 03:57 Hospitalist ROS - Review of Systems ROS unobtainable: due to mental status - Medication Medications: Active Medications Generic Name Dose Route Start Last Admin Trade Name Freq PRN Reason Stop Dose Admin Amiodarone HCl 400 mg 03/25/20 09:00 03/25/20 09:17 Amiodarone 200 Mg Tab PO Not Given BID RAGHU Dexamethasone 6 mg 03/21/20 09:00 03/25/20 08:02 Dexamethasone 4 Mg/Ml Vial SLOW IVP 6 mg DAILY RAGHU Administration Diltiazem HCl 60 mg 03/25/20 09:00 03/25/20 09:17 Diltiazem Hcl Sr 60 Mg Capsule PO Not Given BID RAGHU Enoxaparin Sodium 80 mg 03/21/20 09:00 03/25/20 08:03 Enoxaparin Sodium 80 Mg/0.8 Ml Syringe SC 80 mg 0900,2100 RAGHU Administration Sodium Chloride 1,000 mls @ 70 mls/hr 03/21/20 05:00 03/24/20 15:14 Normal Saline 0.9% IV 1,000 mls .[id number] RAGHU Administration Amiodarone HCl 450 mg/ 259 mls @ 0 mls/hr 03/21/20 05:15 03/24/20 18:22 Dextrose/Water IVPB 03/25/20 12:00 259 mls INF RAGHU Administration Protocol Per Protocol Cefepime HCl 2 gm/ Sodium 100 mls @ 200 mls/hr 03/22/20 16:00 03/24/20 15:14 Chloride IVPB 100 mls 1600 RAGHU Administration Vancomycin HCl 1.5 gm/ Device 300 mls @ 200 mls/hr 03/24/20 04:00 03/25/20 04:59 IVPB 300 mls 0400 RAGHU Administration Sodium Chloride 10 ml 03/22/20 09:00 03/25/20 08:03 Flush - Normal Saline 10 Ml Syringe IVF 10 ml Q12HR RAGHU Administration - Exam General Appearance: ill appearing ENT: moist mucosa Heart: no murmur, no gallops, no rubs, irregular Heart - other findings: tachycardic Respiratory - other findings: coarse breath sounds bilaterally, decent air movement Gastrointestinal: soft, non-tender, non-distended, normal bowel sounds Extremities: no edema Psychiatric: somnolent Hosp A/P - Plan (1) Respiratory failure with hypoxia Code(s): J96.91 - RESPIRATORY FAILURE, UNSPECIFIED WITH HYPOXIA Status: Acute (2) Atrial fibrillation with RVR Code(s): I48.91 - UNSPECIFIED ATRIAL FIBRILLATION Status: Acute (3) COVID-19 status: Acute (4) Pneumonia Code(s): J18.9 - PNEUMONIA, UNSPECIFIED ORGANISM Status: Acute (5) Sepsis Code(s): A41.9 - SEPSIS, UNSPECIFIED ORGANISM Status: Acute - Plan Continue vancomycin and cefepime Continue IV dexamethasone for COVID-19 pneumonia. Patient is not a candidate for remdesivir. Patient in A. fib, rate controlled but tachy again after stopping dig and diltiazem, unable to take po so will restart diltiazem drip and continue amiodarone drip. PCCM/cardiology services following. Patient with poor prognosis. Will ask palliative care to get involved.
[2020-03-25] MEDS: Sodium Chloride 0.9% 1,000 ML IV SCH ×2 (11:01→20:56)
[2020-03-25] MEDS: busPIRone HCl 5 MG TAB PO SCH ×2 (11:02→19:39)
--- NOTE | 2020-03-25 11:07 | PQF ---
CLINICAL DOCUMENTATION CLARIFICATION FORM: Dear KASEY KINSEY Date: 03-25-20 Please exercise your independent, professional judgment in responding to the clarification form. Clinical indicators are provided on the bottom of this form for your review. Please check appropriate box(es): [ ] Acute Renal Failure (ARF) / Acute Kidney Injury (DANITZA) [ ] Insignificant Lab Values [ ] Other diagnosis [ ] Unable to determine In addition, please specify: Present on Admission (POA): [ ] Yes [ ] No [ ] Unable to determine For continuity of documentation, please document condition throughout progress notes and discharge summary. Thank You. To be completed by CDI/Coding staff for physician review: CLINICAL INDICATORS - SIGNS / SYMPTOMS / LABS / RESULTS AND LOCATION IN MR: GFR: 03-21-20: 43 03-22-20: GREATER THAN 90 03-24-20: 83 CREATININE: 03-21-20: 1.18 03-22-20: 0.62 03-24-20: 0.67 BUN: 03-21-20: 50 03-22-20: 38 03-24-20: 36 ER NOTES 03-21-20: PNEUMONIA, A FIB WITH RVR, SEPSIS RISK FACTORS / RESULTS AND LOCATION IN MR: ER NOTES 03-21-20: HOME MEDS: ATORVASTATIN, ASA, LISINOPRIL, METFORMIN ER NOTES 03-21-20: VANCOMYCIN IV, CEFEPIME IV, NS IVF, LASIX IV TREATMENTS / RESULTS AND LOCATION IN MR: ER NOTES 03-21-20: NS IVF National Kid[employer] Guidelines for CKD Staging Stage I Kidney damage with normal or increased GFR GFR > 90 Stage II Kidney damage with mildly decreased GFR GFR 60-89 Stage III Kidney damage with moderately decreased GFR GFR 30-59 Stage IV Kidney damage with severely decreased GFR GFR 16-29 Stage V Kidney failure GFR<15 ESRD End Stage Renal Disease On dialysis Acute Renal Failure/Acute Kidney Failure defined as: Increases in SCr by (>) 0.3 mg/dl within 48 hours OR- Increases in SCr by (>) 1.5 times baseline, known or presumed to have occurred within the prior 7 days OR- Urine volume < 0.5 ml/kg/hour for 6 hours (KDIGO supplement 2012 for RIFLE/THERON criteria) CDS Signature: Beth Cano Phone #: [phone] Date: 03-25-20 This is a permanent part of the Medical Record [facility]
[2020-03-25] MEDS ORDERED: Diltiazem 125 MG in Sodium Chloride 0.9% 100 ML IVPB SCH (12:00)
[2020-03-25] MEDS ORDERED: Amiodarone 450 MG in Dextrose 5% in Water 250 ML IVPB SCH (12:00)
[2020-03-25 13:11] VITALS: BMI 26.0
[2020-03-25] MEDS: Cefepime 2 GM in Sodium Chloride 0.9% 100 ML IVPB SCH (13:38)
--- NOTE | 2020-03-25 16:29 | PDOC.PALCO ---
Palliative Care Consult - Consult Details Requesting Physician: Dr Thakur Reason for Consult: goals of care - Pertinent HPI Patient is a 89 year old female who is a resident at [facility] secondary to Dementia and need for assistance with ADL's. She experienced shortness of breath and was transferred to [facility] emergency room for evaluation 03/21/2020. She was noted to be Covid + 03/03. In evaluation she was noted to have respiratory failure requiring bipap with onset of afib with rvr and suspected sepsis. Admitted for medical management and further evaluation. Covid precautions lifted today 03/25/2020. - Pertinent PMH Dementia, HTN, HDL, DM II - Social History Smoking Status: Never smoker Smoking: no tobacco exposure Alcohol Use: none Drug Use History: none Living Situation: assisted resident - Medications MAR Reviewed: Yes - Allergies Allergies/Adverse Reactions: Allergies Allergy/AdvReac Type Severity Reaction Status Date / Time Sulfa (Sulfonamide Allergy Verified 03/21/20 06:32 Antibiotics) - Subjective On Bipap, Dr Crooks stopped Dig, will stop diltiazem today and hope to transition to oral amiodarone. Patient not able to engage at time of assessment. - ROS Non Response: due to endotracheal tube, due to mental status - Objective Vital Signs: Vital Signs - Most Recent Temp Pulse Resp BP Pulse Ox 97.7 F 112 H 96 03/25/20 15:53 03/25/20 15:15 03/25/20 08:00 Palliative Performance Scale: 30 - Physical Exam Constitutional: encephalitic, ill appearing HEENT: moist MMs Deviation from normal: Bipap, adventicious bilaterally Deviation from normal: Atrial fib, controlled Gastrointestinal: soft, non-tender, positive bowel sounds, incontinent Genitourinary: incontinent Musculoskeletal: no cyanosis, no clubbing, diffuse muscle atrophy Neurology: no focal deficits Skin: cap refill <2 seconds, bruising, fragile Deviation from normal: encephalopathic - Problem List (1) Palliative care encounter Code(s): Z51.5 - ENCOUNTER FOR PALLIATIVE CARE Current Visit: Yes Status: Acute (2) Dementia Code(s): F03.90 - UNSPECIFIED DEMENTIA WITHOUT BEHAVIORAL DISTURBANCE Current Visit: Yes Status: Acute (3) Atrial fibrillation with RVR Code(s): I48.91 - UNSPECIFIED ATRIAL FIBRILLATION Current Visit: Yes Status: Acute (4) Pneumonia Code(s): J18.9 - PNEUMONIA, UNSPECIFIED ORGANISM Current Visit: Yes Status: Acute (5) Respiratory failure with hypoxia Code(s): J96.91 - RESPIRATORY FAILURE, UNSPECIFIED WITH HYPOXIA Current Visit: Yes Status: Acute - Plan/Recommendations Plan: Communicated with patient shayne Corea. Discussed current state of health, and confirmed DNAR status and patient baseline with progressing dementia. Anmol relayed that he and his brother desire to seek Palliative measures for his mothers care. Requested family meeting 03/26/10 at 11 am to further discuss goal of care. Hopeful for return to prior assisted living facility/memory care. Will revisit Goal of care with patient sons 03/26/20 introducing option of Hospice care to follow patient at facility to manage symptoms, promote comfort and prevent unnecessary readmissions. Will relay to Dr Rahman hospitalist. [55] minutes spent on this encounter with >50% of the time in counseling and coordination of care. Thank you for this very appropriate consult.
[2020-03-25] MEDS ORDERED: RisperDAL Oral Solution 1 MG/ML UDCUP PO SCH (21:00)
[2020-03-25] MEDS ORDERED: Atorvastatin Calcium 10 MG TAB PO SCH (21:00)
[2020-03-26] MEDS: Vancomycin 1.5 GRAM/300 ML BAG 1.5 GM in Premix Bag 1 BAG IVPB SCH (03:35)
[2020-03-26] MEDS: busPIRone HCl 5 MG TAB PO SCH ×2 (07:21→14:24)
[2020-03-26] MEDS: Amiodarone 200 MG TAB PO SCH (07:21)
[2020-03-26] MEDS: Diltiazem HCl SR 60 mg Capsule PO SCH (07:22)
[2020-03-26] MEDS: Dexamethasone 4 mg/ml Vial SLOW IVP SCH (07:24)
[2020-03-26] MEDS: Enoxaparin Sodium 80 MG/0.8 ML SYRINGE SC SCH (07:25)
[2020-03-26 08:16] LABS: Vancomycin, Trough 39.3 ug/mL
[2020-03-26] MEDS ORDERED: Aspirin 81 mg Enteric Coated Tablet PO SCH (09:00)
[2020-03-26] MEDS ORDERED: Non-Formulary Item 1 EACH (Lactobacillus Acidophilus [Probiotic] 1 CAPSULE Capsule) PO SCH (09:00)
--- NOTE | 2020-03-26 10:15 | PQF ---
CLINICAL DOCUMENTATION CLARIFICATION FORM: Dear Dr. KASEY KINSEY Date: 03-26-20 Please exercise your independent, professional judgment in responding to the clarification form. Clinical indicators are provided on the bottom of this form for your review. Please check appropriate box(es): [ ] Encephalopathy: Type: [ ] Acute [ ] Subacute [ ] Chronic Etiology: [ ] Metabolic [ ] Toxic [ ] Hypoxic [ ] Other (please specify) [ ] Transient Alteration of Awareness [ ] Other diagnosis [ ] Unable to determine In addition, please specify: Present on Admission (POA): [ ] Yes [ ] No [ ] Unable to determine For continuity of documentation, please document condition throughout progress notes and discharge summary. Thank You. To be completed by CDI/Coding staff for physician review: CLINICAL INDICATORS - SIGNS / SYMPTOMS / LABS / RESULTS AND LOCATION IN EMR: ER DX 03-21-20: PNEUMONIA, A FIB WITH RVR, SEPSIS PN DR. MATHEW 03-22-20: HE IS NOT ANSWERING QUESTIONS, COULD NOT COMPLETE REVIEW OF SYSTEMS DUE TO MENTAL STATUS, LETHARGIC PN LINDA 03-25-20: DEMENTIA AND NEED FOR ASSISTANCE WITH ADLS, ENCEPHALITIC, ILL APPEARING RISK FACTORS / RESULTS AND LOCATION IN EMR: H&P: 03-21-20: ACUTE RESPIRATORY FAILURE WITH HYPOXIA, SEPSIS, PNEUMONIA, COVID 19, A FIB WITH RVR TREATMENTS / RESULTS AND LOCATION IN EMR: H&P: 03-21-20: WILL START CEF + VANC, IVFS, F/U LA, PULMONARY CONSULT, ON BIPAP CDS Signature: Beth Cano Phone #:[phone] Date/Time: 03-26-20 This is a permanent part of the Medical Record [facility]
[2020-03-26 11:51] VITALS: TEMP 96.3
[2020-03-26] MEDS: Sodium Chloride 0.9% 1,000 ML IV SCH (14:10)
[2020-03-26] MEDS: Cefepime 2 GM in Sodium Chloride 0.9% 100 ML IVPB SCH (14:24)
--- NOTE | 2020-03-26 14:40 | PDOC.FMACP ---
Advance Care Planning - Problem (1) Palliative care encounter Status: Acute Code(s): Z51.5 - ENCOUNTER FOR PALLIATIVE CARE (2) Dementia Status: Acute Code(s): F03.90 - UNSPECIFIED DEMENTIA WITHOUT BEHAVIORAL DIST URBANCE (3) Atrial fibrillation with RVR Status: Acute Code(s): I48.91 - UNSPECIFIED ATRIAL FIBRILLATION (4) Pneumonia Status: Acute Code(s): J18.9 - PNEUMONIA, UNSPECIFIED ORGANISM (5) Respiratory failure with hypoxia Status: Acute Code(s): J96.91 - RESPIRATORY FAILURE, UNSPECIFIED WITH HYPOXIA - Note Summary: Advanced Care Planning was discussed. The diagnosis, prognosis and goals of care were discussed. Appropriate forms and documentation to accomplish the goals of care were discussed. All questions were answered. The Palliative Care Team will be engaged to assist with completion of any outstanding forms that are needed.
--- NOTE | 2020-03-26 16:06 | PDOC.DS.DS ---
Provider - Provider Date of Admission: 03/21/20 04:51 Date of Discharge: 03/26/20 Admitting Provider: Palmer Chavez Consultations: Cardiology (Dr. Macias) Primary Care Physician: JESS VYAS MD Course - Hospital Course Hospital Course: Discharge diagnosis: 1. Atrial fibrillation with rapid ventricular response 2. COVID-19 pneumonia 3. Acute hypoxic respiratory failure 4. Sepsis 5. Pneumonia 6. Hypokalemia kalemia 7. Acute kidney injury 8. Acute metabolic encephalopathy, present on admission Hospital course: Patient is a pleasant 83-year-old lady who was admitted to the hospital on March 21, 2020 for atrial fibrillation with rapid ventricular response as well as acute hypoxic respiratory failure secondary to COVID-19 pneumonia. Patient was treated with BiPAP. Patient was treated with digoxin as well as with amiodarone. She also received antibiotics and dexamethasone. She continued to decline. Palliative care service was involved. After discussion with family, she was made comfort measures only. She is being discharged to inpatient hospice. Many thanks for allowing me to participate in your patient's care. Please feel free to contact me with any questions or concerns. Discharge destination: Inpatient hospice Total amount of time spent coordinating this discharge: 31 minutes Resuscitation Status: 03/21/20 04:55 Resuscitation Status Routine Resuscitation Status: DNAR: NO Resuscitation Discussed with: detention records - Labs Lab Results: 03/25/20 03:15 03/24/20 03:57 Abnormal Lab Results - Last 48 hrs 03/26/20 07:34: Vancomycin Trough 39.3 H* - Physical Exam Vitals: Vital Signs (12 hours) Temp Pulse Pulse Ox 03/26/20 13:00 81 03/26/20 11:51 96.3 F L 03/26/20 08:00 96 03/26/20 07:16 97.2 F L Weight Admit Weight 166 lb Weight 166 lb 6 oz Most Recent Monitor Data Heart Rate from ECG 80 NIBP 137/99 NIBP BP-Mean 111 Respiration from ECG 22 SpO2 100 Physical Exam: The patient was seen and examined on the day of discharge. Plan - Discharge Medications Home Medications: Medication Instructions Recorded Confirmed Type Aspirin [Ecotrin Low Strength] 1 tab PO DAILY 03/21/20 03/21/20 History Atorvastatin Calcium 1 tab PO HS 03/21/20 03/21/20 History Carboxymethylcellulose Sodium 1 drop EA EYE QID 03/21/20 03/21/20 History [Refresh Tears] Cetirizine HCl 1 tab PO DAILY 03/21/20 03/21/20 History Cholecalciferol (Vitamin D3) 1 cap PO DAILY 03/21/20 03/21/20 History [Vitamin D3] Lactobacillus Acidophilus 250 mg PO DAILY 03/21/20 03/21/20 History [Probiotic] Lisinopril 1 tab PO DAILY 03/21/20 03/21/20 History Polyethylene Glycol 3350 [Miralax] 1 pk PO PRN PRN 03/21/20 03/21/20 History Sertraline HCl 1 tab PO DAILY-AC 03/21/20 03/21/20 History busPIRone HCl 1 tab PO TID 03/21/20 03/21/20 History guaiFENesin/Dextromethorphan 15 ml PO Q4HR PRN 03/21/20 03/21/20 History [Robafen Dm Cough 100-10 mg/5Ml] metFORMIN [Glucophage] 1 tab PO DAILY 03/21/20 03/21/20 History risperiDONE [Risperidone] 1.5 tab PO HS 03/21/20 03/21/20 History Allergies: Sulfa (Sulfonamide Antibiotics) Allergy (Verified 03/21/20 06:32) - Follow up Plan Referrals: JESS VYAS [Primary Care Provider] - Disposition: HOSPICE MEDICAL FACILITY Quality - Care Measures CORE MEASURES:: N/A
== END 2020-03-26 14:35 | disposition hospice, inpatient (51) | DRG 871 ==
LOC: ERS 02:53 → IMCU/EMU 04:51
PROVIDERS: ADMIT Internal Medicine; ATTEND Internal Medicine
PROC: 5A09357 Assistance with Respiratory Ventilation, Less than 24 Consecutive Hours, Continuous Positive Airway Pressure (ICD-10-PCS; principal; 2020-03-21)
PROC: 8E0ZXY6 Isolation (ICD-10-PCS; 2020-03-21)
DX: A41.89 Other specified sepsis (principal); U07.1 COVID-19; J12.82 Pneumonia due to coronavirus disease 2019; J96.01 Acute respiratory failure with hypoxia; G93.41 Metabolic encephalopathy; N17.9 Acute kidney failure, unspecified; Z66 Do not resuscitate; Z51.5 Encounter for palliative care; R65.20 Severe sepsis without septic shock; I48.91 Unspecified atrial fibrillation; E87.6 Hypokalemia; I10 Essential (primary) hypertension; E78.5 Hyperlipidemia, unspecified; G30.9 Alzheimer's disease, unspecified; F02.80 Dementia in other diseases classified elsewhere, unspecified severity, without behavioral disturbance, psychotic disturbance, mood disturbance, and anxiety; E11.9 Type 2 diabetes mellitus without complications; Z79.899 Other long term (current) drug therapy; Z88.0 Allergy status to penicillin; Z79.82 Long term (current) use of aspirin; Z79.84 Long term (current) use of oral hypoglycemic drugs
CPT/HCPCS: 36415; 36416; 71045; 80048; 80053; 80202; 82728; 83605; 83615; 83880; 84145; 84484; 85007; 85014; 85018; 85025; 85027; 85049; 85379; 86140; 87635; 93005; 94660; 96365; 96368; 96375; 96376; J0282; J0692; J1100; J1160; J1650; J1940; J3370; J3490; J7070; U0003

== ENCOUNTER 2020-03-26 15:15 | Inpatient (IN) | payer OTHER ==
[2020-03-26] MEDS ORDERED: Morphine 4 MG/ML VIAL ONE (15:29)
[2020-03-26] MEDS ORDERED: Bisacodyl 10 MG SUPP PR PRN (15:41)
[2020-03-26] MEDS ORDERED: Lorazepam 2 MG/ML VIAL SLOW IVP PRN (15:43)
[2020-03-26] MEDS: Morphine 4 MG/ML VIAL SLOW IVP PRN (15:45)
[2020-03-26] MEDS ORDERED: diphenhydrAMINE 50 MG/ML VIAL IVP PRN (15:45)
[2020-03-26] MEDS ORDERED: Ondansetron PF 4 MG/2 ML Vial IVP PRN (15:45)
[2020-03-26] MEDS ORDERED: Scopolamine 1.5 mg/72 hour Patch TOP PRN (15:45)
[2020-03-26] MEDS: Lorazepam 2 MG/ML VIAL SLOW IVP SCH ×2 (16:56→21:53)
[2020-03-26] MEDS: Morphine 4 MG/ML VIAL SLOW IVP SCH ×2 (17:42→23:49)
[2020-03-27] MEDS: Lorazepam 2 MG/ML VIAL SLOW IVP SCH ×6 (02:09→21:02)
[2020-03-27 04:50] VITALS: BMI 25.9
[2020-03-27] MEDS: Morphine 4 MG/ML VIAL SLOW IVP SCH ×3 (05:45→18:39)
[2020-03-27] MEDS ORDERED: Morphine 4 MG/ML VIAL SLOW IVP SCH (17:00)
[2020-03-28] MEDS: Morphine 4 MG/ML VIAL SLOW IVP SCH ×6 (00:19→18:49)
[2020-03-28] MEDS: Lorazepam 2 MG/ML VIAL SLOW IVP SCH ×6 (02:20→21:44)
[2020-03-28] MEDS ORDERED: Morphine 4 MG/ML VIAL SLOW IVP SCH (17:00)
[2020-03-29] MEDS: Morphine 4 MG/ML VIAL SLOW IVP SCH ×7 (00:01→22:44)
[2020-03-29] MEDS: Lorazepam 2 MG/ML VIAL SLOW IVP SCH ×6 (02:04→20:39)
[2020-03-29 20:34] VITALS: BP 90/52; TEMP 98.4
[2020-03-30] MEDS: Lorazepam 2 MG/ML VIAL SLOW IVP SCH (00:34)
[2020-03-30] MEDS: Morphine 4 MG/ML VIAL SLOW IVP PRN (00:56)
--- NOTE | 2020-04-01 15:17 | DIS ---
DATE OF ADMISSION: 03/26/2020 DATE OF DISCHARGE: 03/30/2020 This is a summary. DATE OF : 03/30/2020 PRINCIPAL DIAGNOSIS: Cardiorespiratory failure secondary to COVID-19 pneumonia. SECONDARY DIAGNOSES: 1. Acute hypoxemic respiratory failure. 2. Atrial fibrillation. 3. Dyslipidemia. 4. Allergic rhinitis. 5. Hypertension. 6. Anxiety and depression. 7. Diabetes mellitus type 2. COMPLICATIONS: None. ADVERSE REACTIONS: None. PROCEDURES: None. CONSULTATIONS: None. HOSPITAL COURSE: The patient was admitted to hospice due to progressive decline despite maximum medical treatment for her COVID-19 pneumonia. Family decided on hospice management and comfort care. The patient was transferred to hospice services on 03/26. The patient was managed symptomatically with morphine and Ativan as needed. She gradually declined. She was not in any distress. She peacefully on 03/30/2020. The patient was not a candidate for organ donation, and body was released to the home. For full details, please see chart. Job ID: [id number]
== END 2020-03-30 01:42 | disposition expired | DRG 951 ==
LOC: IMCU/EMU 15:15 → SURG A 20:20
PROVIDERS: ADMIT Internal Medicine; ATTEND Internal Medicine
PROC: 8E0ZXY6 Isolation (ICD-10-PCS; principal; 2020-03-26)
DX: Z51.5 Encounter for palliative care (principal); U07.1 COVID-19; J12.82 Pneumonia due to coronavirus disease 2019; J96.01 Acute respiratory failure with hypoxia; A41.89 Other specified sepsis; G93.41 Metabolic encephalopathy; Z66 Do not resuscitate; G30.9 Alzheimer's disease, unspecified; F02.80 Dementia in other diseases classified elsewhere, unspecified severity, without behavioral disturbance, psychotic disturbance, mood disturbance, and anxiety; I10 Essential (primary) hypertension; I48.91 Unspecified atrial fibrillation; E78.5 Hyperlipidemia, unspecified; J30.9 Allergic rhinitis, unspecified; E11.9 Type 2 diabetes mellitus without complications; F41.9 Anxiety disorder, unspecified; F32.9 Major depressive disorder, single episode, unspecified
CPT/HCPCS: J2060; J2270